=== PATIENT | male | born 1970 | race Two or more races ===

== ENCOUNTER 2020-08-28 03:05 | Emergency (ER) | payer OTHER ==
[2020-08-28 03:15] VITALS: BP 115/83; PULSE 73; TEMP 98.2; BMI 25.1
[2020-08-28] MEDS ORDERED: AMOX TR/POT CLAV 875MG/125MG TABLETS (FP) PO ONE (03:27)
[2020-08-28] MEDS ORDERED: DIPHTH,PERTUSS(ACELL),TET 0.5 ML DISP.SYRIN IM ONE ×2 (03:37→03:58)
[2020-08-28] MEDS ORDERED: AMOX TR/POT CLAV 875MG/125MG TABLETS (FP) ONE (03:58)
== END 2020-08-28 04:54 | disposition home or self-care (01) ==
LOC: JER 03:05
PROC: 3E0234Z Introduction of Serum, Toxoid and Vaccine into Muscle, Percutaneous Approach (ICD-10-PCS; principal; 2020-08-28)
DX: S61.311A Laceration without foreign body of left index finger with damage to nail, initial encounter (principal)
CPT/HCPCS: 73130-TC-LT-FY; 90715; 99284-25